=== PATIENT | male | born 1955 | race Asian ===

== ENCOUNTER 2021-12-31 14:31 | Emergency (ER) | payer OTHER ==
[~2021-12-31] VITALS: Ht 175.3 cm; Wt 70.5 kg
[2021-12-31] MEDS ORDERED: PERTUSS(ACELL),DIPH,TET VAC/PF 0.5 ML SYRINGE IM. ONE (16:00)
[2021-12-31 17:00] VITALS: BP 130/68
== END 2021-12-31 17:14 | disposition home or self-care (01) ==
LOC: EMS 14:31
DX: S81.852A Open bite, left lower leg, initial encounter (principal); W54.0XXA Bitten by dog, initial encounter; Y93.89 Activity, other specified; Y92.89 Other specified places as the place of occurrence of the external cause; Y99.8 Other external cause status
CPT/HCPCS: 90471; 90715; 99283